=== PATIENT | female | born 1940 | race Two or more races ===

== ENCOUNTER 2023-08-16 11:47 | Outpatient (CLI) | payer OTHER | END 2023-08-16 11:49 | disposition home or self-care (01) | LOC: RAD 11:47 | PROVIDERS: ATTEND Obstetrics & Gynecology | DX: E78.2 Mixed hyperlipidemia (principal); N02.0 Recurrent and persistent hematuria with minor glomerular abnormality; N18.30 Chronic kidney disease, stage 3 unspecified; I70.0 Atherosclerosis of aorta; G30.0 Alzheimer's disease with early onset; I13.10 Hypertensive heart and chronic kidney disease without heart failure, with stage 1 through stage 4 chronic kidney disease, or unspecified chronic kidney disease; F02.80 Dementia in other diseases classified elsewhere, unspecified severity, without behavioral disturbance, psychotic disturbance, mood disturbance, and anxiety; Z79.82 Long term (current) use of aspirin; Z12.31 Encounter for screening mammogram for malignant neoplasm of breast; N84.0 Polyp of corpus uteri; N20.0 Calculus of kidney ==